=== PATIENT | male | born 1950 | race Caucasian/White ===

== ENCOUNTER 2017-01-09 07:08 | Inpatient (IN) ==
--- NOTE | 2017-01-04 21:49 | Discharge Summary ---
<Ann Anderson - Last Filed: 01/06/17 21:41> - Discharge Diagnosis (1) Arthritis of knee, right Priority: Primary Status: Acute (2) HLD (hyperlipidemia) Priority: Secondary Status: Chronic Qualifiers: Hyperlipidemia type: unspecified Qualified Code(s): E78.5 - Hyperlipidemia , unspecified (3) CAD (coronary artery disease) Priority: Secondary Status: Chronic Qualifiers: Coronary Disease-Associated Artery/Lesion type: unspecified vessel or lesion type [place] vs. transplanted heart: unspecified whether [place] or transplanted heart Associated angina: angina presence unspecified Qualified Code(s): I25.10 - Atherosclerotic heart disease of [place] coronary artery without angina pectoris (4) HTN (hypertension) Priority: Secondary Status: Chronic Qualifiers: Hypertension type: essential hypertension Qualified Code(s): I10 - Essential (primary) hypertension - Discharge Medications Home Medications: Lisinopril [Zestril] 5 mg PO DAILY #0 09/07/16 [History] Metoprolol [Lopressor] 25 mg PO BID #0 09/07/16 [History] Omeprazole [PriLOSEC] 40 mg PO QPM #0 09/07/16 [History] Pravastatin Sodium [Pravachol] 40 mg PO DAILY 11/27/16 [History] Aspirin Enteric Coated [Aspirin EC] 325 mg PO DAILY #21 tablet. 01/06/17 [Rx] OxyCODONE Immed Rel [Roxicodone 5 MG] 5 - 10 mg PO Q6HR PRN #40 01/06/17 [Rx] Aspirin Enteric Coated [Aspirin EC] 81 mg PO DAILY 01/09/17 [History] Duloxetine [Cymbalta] 30 mg PO BID 01/09/17 [History] Ergocalciferol (VITAMIN D2) [Vitamin D] 800 unit PO BID 01/09/17 [History] Allergies/Adverse Reactions: Allergies No Known Allergies Allergy (Verified 01/09/17 07:56) Primary care physician: Hudson Strong MD - Patient Status Disposition: Home, Self-Care Condition: Good - Discharge Instructions Follow Up With: Hudson Strong MD [Primary Care Provider] - 01/18/17 10:00 am Additional Instructions: Discharge Instructions: Total Knee Replacement Please call [facility] ([phone]), your Primary Care Physician, or report to the Emergency Room if you have any of the following symptoms: Nausea, vomiting, fever greater that 101.5, swelling, chest pain, shortness of breath, increased pain/redness/drainage/odor for your incision site, numbness/ tingling, or any other concerning symptoms. ACTIVITY:Weight-bearing as tolerated. You may progress off support (cruthches or walker) as tolerated. MEDICATIONS: Upon discharge resume your home medications. Take all the medications as prescribed. Take a stool softener if taking narcotic pain medications. Stool softeners are only effective if you drink enough fluids. Drink 6-8 glass of water or fluids a day, unless this is not allowed for another health problem. Despite using stool softeners, if you haven't had a bowel movement in 3 days, please switch to a gentle laxative. Gentle laxatives are sold over the counter. You should have a bowel movement within 24 hours, if not call the office. You will be discharged from the hospital with a prescription for pain medication. You are encouraged to decrease the use of narcotic pain medication as tolerated. Should you require a refill, please call the office. [facility] prescribes narcotic pain medication for only 4-6 weeks after surgery. If you require pain medication beyond this time periord, you may be referred to your Primary Care Physician or to the Pain Clinic for further evaluation. Plan ahead for refills on pain medication as many narcotics either need to be picked up at the office or mailed. It is best to call 48-72 hours in advance of needing a prescription refill so you don't run out of medication. To help control the post-operative pain, you may take NSAIDs (Aleve,Advil, Motrin, ibuprofen, naprosyn) or Tylenol as prescribed on the bottle in addition to the pain medication. ANTICOAGULATION (blood thinners): Continue your Aspirin, Lovenox or Coumadin as prescribed to help prevent a blood clot in the leg or in the lungs. As long as your incision remains dry and you tolerate the NSAIDs (Aleve, Advil, Motrin, ibuprofen, naprosyn), it is OK to use the NSAIDS while you are taking your anticoagulation medication. Should your incision start to drain, stop the NSAID and contact our office. Common symptoms of blood clot in the legs include: localized pain, swelling, calf tenderness, redness or discoloration of the skin. Blood clot in the lung symptoms include: shortness of breath, rapid pulse, sweating, and chest pain that worsens with deep breathing, coughing up blood, lightheadedness, feelings of anxiety. If you experience any of these symptoms notify your physician immediately, go to the emergency room, or if having trouble breathing, call 911. WOUND CARE: Leave the dressing on for 7 days. You may change the dressing if it becomes saturated greater than 50%. You can shower but not a tub bath or submerge your incision in water. Wash your hands with antibacterial soap, rinse and dry prior to any wound care. If you have ginger the visiting nurse or rehab facility can remove the stapes 10-14 days after surgery and place steri- strips across the wound. Leave the steri-strips in place until they fall off on their won. You may let water from the shower run on top of the steri-stirips. If you do not have a visiting nurse or rehab facility, you will need to return to the office at 10-14 days for the ginger to be removed. FOLLOW-UP: Please follow up with your surgeon in the orthopedic clinic in 4 weeks from the day of surgery. If you have ginger that need to be removed, you will need to come back to the office in 10-14 days from the day of surgery. - Hospital Course Hospital course: Mr. Diaz is a 66 year old male - Time Spent with Patient Total time spent providing and/or coordinating discharge services: <Tomer Azul - Last Filed: 01/11/17 06:23> Date of Encounter: 01/11/17 Time of Encounter: 06:23 - Discharge Diagnosis (1) Arthritis of knee, right Priority: Primary Status: Acute (2) HLD (hyperlipidemia) Priority: Secondary Status: Chronic Qualifiers: Hyperlipidemia type: unspecified Qualified Code(s): E78.5 - Hyperlipidemia , unspecified (3) HTN (hypertension) Status: Chronic Qualifiers: Hypertension type: essential hypertension Qualified Code(s): I10 - Essential (primary) hypertension (4) CAD (coronary artery disease) Priority: Secondary Status: Chronic Qualifiers: Coronary Disease-Associated Artery/Lesion type: unspecified vessel or lesion type [place] vs. transplanted heart: unspecified whether [place] or transplanted heart Associated angina: angina presence unspecified Qualified Code(s): I25.10 - Atherosclerotic heart disease of [place] coronary artery without angina pectoris Primary care physician: Hudson Strong MD - Patient Status Functional capacity at discharge: uses cane/walker Overall status at discharge: patient is progressing back to baseline - Hospital Course Hospital course: Mr. Diaz is a 66 year old male The patient had an uneventful postoperative course. They received antibiotics and physical therapy and were discharged in stable condition. There will follow -up in the office in 2 weeks. Aspirin DVT prophylaxis - Time Spent with Patient Total time spent providing and/or coordinating discharge services:
[2017-01-09] MEDS ORDERED: ceFAZolin 2,000 MG in D5% in Water (Mini-Bag+) 100 ML IVPB ONE (07:26)
[2017-01-09] MEDS ORDERED: Famotidine 20 MG/2 ML VIAL IVP ONE (07:28)
[2017-01-09] MEDS ORDERED: *HR* FentaNYL (PF) 100 MCG/2 ML VIAL ONE (07:41)
[2017-01-09] MEDS ORDERED: *HR* Midazolam HCl 2 MG/2 ML VIAL ONE (07:41)
[2017-01-09] MEDS ORDERED: *HR* Propofol 200 MG/20 ML VIAL IVP ONE (07:41)
--- NOTE | 2017-01-09 07:54 | History & Physical Report ---
Date of Encounter: 01/09/17 Time of Encounter: 07:54 24 Hour HP Update - Instructions Instructions: If the History and Physical is less than 30 days old and was completed prior to A.M. admission and or procedure and has NOT been updated on calendar day of procedure please complete this update prior to performing procedure. - Update Patient reports changes in Medical Condition: No Changes in assessment/condition: No Changes in Medication: No Preop tests/diagnostics Reviewed: Yes Surgery Remains Indicated: Yes Consent for Planned Operative Procedure(s) Verified: Yes - Pre-Operative Checklist Preoperative Checklist Indicated: No Prophylactic Antibiotic Ordered: Yes Is VTE Prophylaxis Indicated?: Yes
[2017-01-09] MEDS: Ringers Solution, Lactated 1,000 ML IVC SCH ×2 (07:59→10:30)
--- NOTE | 2017-01-09 08:45 | Anesthesia Evaluation PreOp ---
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 01/06/17 [Rx] OxyCODONE Immed Rel [Roxicodone 5 MG] 5 - 10 mg PO Q6HR PRN #40 01/06/17 [Rx] Aspirin Enteric Coated [Aspirin EC] 81 mg PO DAILY 01/09/17 [History] Duloxetine [Cymbalta] 30 mg PO BID 01/09/17 [History] Ergocalciferol (VITAMIN D2) [Vitamin D] 800 unit PO BID 01/09/17 [History] Allergies No Known Allergies Allergy (Verified 01/09/17 07:56) - Meds/Allergy Pre-op Review Medications Reviewed: Yes Allergies Reviewed: Yes Beta Blockers on Current Med List: No Anesthesia Results - Labs Laboratory Tests 12/25/16 12/25/16 11:17 11:17 Hgb 15.4 Hct 46.0 Plt Count 172 Sodium 141 Potassium 4.3 BUN 18 Creatinine 0.96 - Imaging EKG: report reviewed (SB Rt BBB) Additional studies: heart Cath from 2010 EF 50% Anesthesia Exam O2 Sat Height 1.8 m Height 1.8 m Height 1.8 m Weight 98.43 kg Weight 98.43 kg Weight 98.43 kg O2 Sat by Pulse Oximetry 97 Vital Signs Temp Pulse Resp BP Pulse Ox 98.5 F 58 18 139/87 97 01/09/17 07:44 01/09/17 07:44 01/09/17 07:44 01/09/17 07:44 01/09/17 07:44 Height: 5'11 Weight: 217 lbs NPO (# of Hours): MN Pain Scale: 0 - HEENT Pupil (Motor): Pupils equal, EOMI Mallampati: III Teeth: Normal Oral Opening: Less than or equal to 3 - 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
[2017-01-09] MEDS ORDERED: ROPIVACAINE HCL/PF 0.5% 30 ML VIAL ONE (08:49)
[2017-01-09] MEDS ORDERED: Tetracaine/PF 20 MG/2 ML AMPUL SPINA ONE (08:49)
--- NOTE | 2017-01-09 09:29 | Anesthesia Procedures ---
Date of Encounter: 01/09/17 Time of Encounter: 08:45 Procedures: Anesthesia - Nerve Block Procedure Date: 01/09/17 Time: 09:00 Pre-op Diagnosis: Left Osteoarthritis Surgical Procedure: Left TKA Checklist: Correct Patient Identifier Correct side: Left Blood Thinner: No Monitor Applied: EKG, BP, Pulse Oximetry Supplemental Oxygen via Nasal Cannula (L/min): 2 Sedation: Versed (mg): 2 Sedation: Fentanyl (mcg): 50 Indication: Post Op Analgesia Pre-op Neuro Deficits: No Block Type: Femoral Catheter placed: No Depth at skin (cm): 3 Sterile Technique: Yes Ultrasound used: Yes Anatomy identified: Yes Visual spread of Local: Yes Neuro Stimulation: Yes Nerve Stimulator Range: >0.4 - 0.6 mA Blood on Needle Aspiration: No Smooth Injection of Local: Yes Pain with Injection of Local: No Prep: Chlorhexadine Needle: 22 x 50 mm Stimuplex Local: Tetracaine (20), Ropivacaine (0.5%) Volume (cc): 30 Number of Attempts: 1 Complications: None/effective block Vitals: O2 Sat Height 1.8 m Height 1.8 m Height 1.8 m Weight 98.43 kg Weight 98.43 kg Weight 98.43 kg O2 Sat by Pulse Oximetry 98 O2 Sat by Pulse Oximetry 96 O2 Sat by Pulse Oximetry 97 Vital Signs Temp Pulse Resp BP Pulse Ox 98.5 F 58 18 139/87 97 01/09/17 07:44 01/09/17 07:44 01/09/17 07:44 01/09/17 07:44 01/09/17 07:44
[2017-01-09] MEDS ORDERED: *HR* Phenylephrine 10 MG/ML VIAL ONE (09:32)
--- NOTE | 2017-01-09 09:52 | Orthopedic Operative Note ---
Date of procedure: 01/09/17 Pre-op diagnosis: Left knee arthritis Post-op diagnosis: same Procedure: Procedure: Left Total knee replacement Estimated blood loss: 450 cc Hardware: Arthrex Femur: 7 Tibia: 7 PS insert: 16 Patella: 37 Exam Under anesthesia: Full flexion full extension no instability Procedural Notes: Grade 4 arthritic changes medial compartment grade 3 arthritic changes patellofemoral joint. Operative procedure: The patient was brought to the operating room and placed on the operating room table. After general anesthesia was administered the operative knee was examined. Findings were noted in the exam under anesthesia. The operative extremity was prepped and draped in sterile surgical fashion. The patient received IV antibiotics prior to skin incision. A standard midline incision was made centered over the patella. The incision was made through the skin and subcutaneous tissue. A medial parapatellar tendon approach was performed. Care was taken to preserve tissue along the medial aspect of the patella. And to protect the patella tendon. The deep MCL was released off the medial tibia. The infra patella fat pad was excised. Knee was brought into flexion. She noted to have grade 4 arthritic changes medial compartment grade 3 arthritic changes patellofemoral joint. The entry hole was made for the intramedullary femoral guide. The guide was seated in 6 degrees of valgus. Anterior cut was made followed by the distal cut. The ACL the PCL the medial and the lateral menisci were excised. The tibia was subluxed forward. The entry hole was made for the intramedullary tibial guide. Guide was seated to resect 2 mm off the more abnormal side. The knee was brought into flexion the distal femur was sized to a 7. The femoral guide was seated, the anterior cut was made followed by the posterior condylar cut, followed by the chamfer cuts. The finishing guide was seated the box cut was made and the lug holes were drilled. The tibia was sized to a 7, the tibial tray was seated and prepared with the large drill followed by the fin cutter. Trial reduction revealed full extension no varus valgus instability with the appropriate 16 PS Kathryn. The patella was everted and cut was made at the level of the insertion of the quadriceps and patella tendon. The patella was sized to a 37 the guide was seated and the lug holes are drilled. Trial reduction revealed excellent patella tracking. All trial components were removed all bony surfaces were irrigated. The tibia was cemented first followed by the femur. The 16 PS Kathryn was seated and the knee was brought into full extension. The patella was cemented and held in place with the patellar holding clamp. After the cement had hardened, the knee sat for 2 minutes with a Betadine saline solution. The knee was then irrigated out with 2 L of pulse irrigation. The extensor mechanism was closed with #2 FiberWire suture and #2 PDS suture. The subcutaneous tissue was then irrigated and closed deep with #1 PDS suture superficially with 0 PDS suture and skin was closed with skin ginger. The patient was then placed in a sterile dressing and a postoperative brace extubated and transferred to recovery room in stable condition. Anesthesia: ORIANA Surgeon: Tomer Azul Club Waiter/Waitress: Ann Anderson Condition: stable Disposition: PACU
[2017-01-09] MEDS ORDERED: Ondansetron 4 MG/2 ML VIAL ONE (10:05)
[2017-01-09] MEDS ORDERED: Dexamethasone 4 MG/ML VIAL ONE (10:05)
[2017-01-09] MEDS: *HR* HYDROmorphone (PF) 1 MG/ML SYRINGE IVP PRN ×3 (10:30→20:44)
[2017-01-09 10:39] LABS: Hematocrit 42.7 % (37.5-50.1)
--- NOTE | 2017-01-09 11:04 | Anesthesia Evaluation Post Op ---
Date of Encounter: 01/09/17 Time of Encounter: 11:00 - Vital Signs Vital Signs: Vital Signs/O2 Sat/Glucose, Most Current Temp Pulse Resp BP Pulse Ox 01/09/17 10:59 56 16 123/75 96 01/09/17 10:50 98.0 F 58 16 114/68 96 01/09/17 10:40 49 18 110/85 95 01/09/17 10:30 48 16 124/75 95 01/09/17 10:20 97.8 F 56 16 124/77 97 01/09/17 09:06 57 16 125/77 98 01/09/17 08:51 95 16 138/92 96 01/09/17 07:44 98.5 F 58 18 139/87 97 - Lungs Lungs: Clear Ascult./Percussion - Airway Airway: Non-obstructed - Cardiovascular Regular Rate - Mental Status Mental Status: Alert & Oriented, Answers Appropriately - Pain Pain Scale: 0 - Nausea Vomiting Nausea Vomiting: Not Present - Hydration Hydration: NPO - Discharge PostOp Status: Transfer Patient to floor
[2017-01-09] MEDS ORDERED: *HR* OxyCODONE Immed Rel 5 MG TABLET PO PRN (11:55)
[2017-01-09] MEDS ORDERED: Temazepam 15 MG CAPSULE PO PRN (11:55)
[2017-01-09] MEDS ORDERED: MOM Conc 10 ML UD.LIQ PO PRN (11:55)
[2017-01-09] MEDS ORDERED: Acetaminophen 325 MG TABLET PO PRN (11:55)
[2017-01-09] MEDS ORDERED: Naloxone 0.4 MG/ML INJ IVP PRN (11:55)
[2017-01-09] MEDS ORDERED: Sennosides 8.6 MG TABLET PO PRN (11:55)
[2017-01-09] MEDS ORDERED: Ondansetron 4 MG/2 ML VIAL IVP PRN (11:55)
[2017-01-09] MEDS: Aspirin Enteric Coated 81 MG Tablet PO SCH (13:15)
[2017-01-09] MEDS: Cholecalciferol (D-3) 1,000 UNIT TABLET PO SCH (13:22)
[2017-01-09] MEDS: *HR* OxyCODONE Immed Rel 5 MG TABLET PO PRN ×3 (13:29→23:54)
[2017-01-09] MEDS: ceFAZolin 2,000 MG in D5% in Water 100 ML IVPB SCH ×2 (15:40→23:54)
[2017-01-09] MEDS ORDERED: *HR* Enoxaparin 30 MG/0.3 ML SYRINGE SQ SCH (18:00)
[2017-01-09] MEDS: *HR* Enoxaparin 30 MG/0.3 ML SYRINGE SQ SCH (18:12)
[2017-01-09] MEDS ORDERED: Ringers Solution, Lactated 1,000 ML IVC SCH (21:00)
[2017-01-10] MEDS: *HR* HYDROmorphone (PF) 1 MG/ML SYRINGE IVP PRN ×5 (01:43→20:36)
[2017-01-10] MEDS: *HR* Enoxaparin 30 MG/0.3 ML SYRINGE SQ SCH ×2 (05:43→17:07)
[2017-01-10 06:18] LABS: Hematocrit 40.7 % (37.5-50.1); Hemoglobin 13.4 g/dL (12.9-16.9)
[2017-01-10 06:34] LABS: BUN/Creatinine Ratio 12 (6-26); Blood Urea Nitrogen 11 mg/dL (8-26); Calcium 8.3 mg/dL (8.6-10.8); Carbon Dioxide 25 mEq/L (19-29); Chloride 104 mEq/L (98-109); Glucose 127 mg/dL (70-99); Osmolality,Calculated 289 (280-300); Sodium 139 mEq/L (136-145); eGFR For African Americans > 60 (> 60); eGFR For Non-African Americans > 60 (> 60)
[2017-01-10 06:36] LABS: Potassium 4.1 mEq/L (3.5-4.5)
[2017-01-10] MEDS: Aspirin Enteric Coated 81 MG Tablet PO SCH (08:26)
[2017-01-10] MEDS: Cholecalciferol (D-3) 1,000 UNIT TABLET PO SCH (08:26)
[2017-01-10] MEDS: *HR* OxyCODONE Immed Rel 5 MG TABLET PO PRN ×3 (08:27→23:55)
--- NOTE | 2017-01-10 08:40 | Orthopedics Progress Note ---
Date of Encounter: 01/10/17 Time of Encounter: 08:39 - Assessment and Plan (1) Arthritis of knee, right Current Visit: Yes Status: Acute (2) HLD (hyperlipidemia) Current Visit: Yes Status: Chronic Qualifiers: Hyperlipidemia type: unspecified Qualified Code(s): E78.5 - Hyperlipidemia , unspecified (3) HTN (hypertension) Current Visit: Yes Status: Chronic Qualifiers: Hypertension type: essential hypertension Qualified Code(s): I10 - Essential (primary) hypertension (4) CAD (coronary artery disease) Current Visit: Yes Status: Chronic Qualifiers: Coronary Disease-Associated Artery/Lesion type: unspecified vessel or lesion type [place] vs. transplanted heart: unspecified whether [place] or transplanted heart Associated angina: angina presence unspecified Qualified Code(s): I25.10 - Atherosclerotic heart disease of [place] coronary artery without angina pectoris Subjective Interval history: Patient was seen this morning doing well without complaints. Afebrile vital signs stable. Operative extremity: Neurovascularly intact Dressing clean dry and intact Calves nontender Assessment and plan: Continue with postoperative care Hematocrit 40 Objective Vital signs: Vital Signs Temp Pulse Resp BP Pulse Ox 01/10/17 06:41 98.5 F 68 16 118/79 96 01/10/17 04:36 98.8 F 66 16 116/75 97 01/10/17 01:00 98.1 F 78 17 131/82 95 01/09/17 21:09 98.7 F 95 17 116/73 95 01/09/17 15:01 98.3 F 62 16 136/86 99 01/09/17 13:15 97.7 F 63 16 129/83 96 01/09/17 12:12 97.6 F 60 15 123/79 97 01/09/17 11:48 97.5 F L 60 15 132/75 99 01/09/17 11:17 97.5 F L 56 15 126/79 99 01/09/17 10:59 56 16 123/75 96 01/09/17 10:50 98.0 F 58 16 114/68 96 01/09/17 10:40 49 18 110/85 95 01/09/17 10:30 48 16 124/75 95 01/09/17 10:20 97.8 F 56 16 124/77 97 01/09/17 09:06 57 16 125/77 98 01/09/17 08:51 95 16 138/92 96 Intake and Output 01/09/17 01/10/17 01/10/17 23:59 07:59 15:59 Intake Total 100 / 100 100 / 100 Output Total 1000 / 1000 400 / 400 Balance -900 / -900 -300 / -300 Intake: IV Fluids 100 / 100 100 / 100 Ancef 2,000 MG In 100 / 100 100 / 100 Dextrose 5% 100 ML @ 200 mls/hr IVPB Q8HR [facility] Rx#: [id number] Oral 0 / 0 Output: Urine 1000 / 1000 400 / 400 - Labs CBC & BMP: 01/10/17 05:16 01/10/17 05:16 Labs: Abnormal lab results Glucose 127 mg/dL (70-99) H 01/10/17 05:16 Calcium 8.3 mg/dL (8.6-10.8) L 01/10/17 05:16 - VTE Documentation of Mechanical Device: Venous foot pump, device Consult Discharge Plan - Plan Referrals: Hudson Strong MD [Primary Care Provider] -
[2017-01-11] MEDS: *HR* HYDROmorphone (PF) 1 MG/ML SYRINGE IVP PRN (03:03)
[2017-01-11 04:57] LABS: Hematocrit 37.7 % (37.5-50.1); Hemoglobin 12.4 g/dL (12.9-16.9)
[2017-01-11 05:15] LABS: BUN/Creatinine Ratio 14 (6-26); Blood Urea Nitrogen 11 mg/dL (8-26); Calcium 8.7 mg/dL (8.6-10.8); Carbon Dioxide 25 mEq/L (19-29); Chloride 103 mEq/L (98-109); Glucose 141 mg/dL (70-99); Osmolality,Calculated 282 (280-300); Sodium 135 mEq/L (136-145); eGFR For African Americans > 60 (> 60); eGFR For Non-African Americans > 60 (> 60)
[2017-01-11] MEDS: *HR* Enoxaparin 30 MG/0.3 ML SYRINGE SQ SCH (05:54)
[2017-01-11] MEDS: *HR* OxyCODONE Immed Rel 5 MG TABLET PO PRN ×2 (05:54→12:23)
--- NOTE | 2017-01-11 06:24 | Orthopedics Progress Note ---
Date of Encounter: 01/11/17 Time of Encounter: 06:24 - Assessment and Plan (1) Arthritis of knee, right Current Visit: Yes Status: Acute (2) HLD (hyperlipidemia) Current Visit: Yes Status: Chronic Qualifiers: Hyperlipidemia type: unspecified Qualified Code(s): E78.5 - Hyperlipidemia , unspecified (3) HTN (hypertension) Current Visit: Yes Status: Chronic Qualifiers: Hypertension type: essential hypertension Qualified Code(s): I10 - Essential (primary) hypertension (4) CAD (coronary artery disease) Current Visit: Yes Status: Chronic Qualifiers: Coronary Disease-Associated Artery/Lesion type: unspecified vessel or lesion type [place] vs. transplanted heart: unspecified whether [place] or transplanted heart Associated angina: angina presence unspecified Qualified Code(s): I25.10 - Atherosclerotic heart disease of [place] coronary artery without angina pectoris Subjective Interval history: Patient was seen this morning doing well without complaints. Afebrile vital signs stable. Operative extremity: Neurovascularly intact Dressing clean dry and intact Calves nontender Assessment and plan: Continue with postoperative care Hematocrit 37 discharged today Objective Vital signs: Vital Signs Temp Pulse Resp BP Pulse Ox 01/11/17 01:36 98.6 F 84 16 132/71 92 L 01/10/17 20:12 99.5 F 84 16 153/88 92 L 01/10/17 14:28 98.5 F 76 18 123/74 94 L 01/10/17 11:17 98.3 F 71 16 120/67 92 L 01/10/17 06:41 98.5 F 68 16 118/79 96 Intake and Output 01/10/17 01/10/17 01/11/17 15:59 23:59 07:59 Intake Total 910 / 910 Output Total 600 / 600 500 / 500 Balance 310 / 310 -500 / -500 Intake: Oral 910 / 910 Output: Urine 600 / 600 500 / 500 Other: Meal Breakfast Percent of Meal Consumed 100% - Labs CBC & BMP: 01/11/17 04:33 01/11/17 04:33 Labs: Abnormal lab results Hgb 12.4 g/dL (12.9-16.9) L 01/11/17 04:33 Sodium 135 mEq/L (136-145) L 01/11/17 04:33 Glucose 141 mg/dL (70-99) H 01/11/17 04:33 - VTE Documentation of Mechanical Device: Venous foot pump, device Consult Discharge Plan - Plan Additional Instructions: Discharge Instructions: Total Knee Replacement Please call [facility] ([phone]), your Primary Care Physician, or report to the Emergency Room if you have any of the following symptoms: Nausea, vomiting, fever greater that 101.5, swelling, chest pain, shortness of breath, increased pain/redness/drainage/odor for your incision site, numbness/ tingling, or any other concerning symptoms. ACTIVITY:Weight-bearing as tolerated. You may progress off support (cruthches or walker) as tolerated. MEDICATIONS: Upon discharge resume your home medications. Take all the medications as prescribed. Take a stool softener if taking narcotic pain medications. Stool softeners are only effective if you drink enough fluids. Drink 6-8 glass of water or fluids a day, unless this is not allowed for another health problem. Despite using stool softeners, if you haven't had a bowel movement in 3 days, please switch to a gentle laxative. Gentle laxatives are sold over the counter. You should have a bowel movement within 24 hours, if not call the office. You will be discharged from the hospital with a prescription for pain medication. You are encouraged to decrease the use of narcotic pain medication as tolerated. Should you require a refill, please call the office. [facility] prescribes narcotic pain medication for only 4-6 weeks after surgery. If you require pain medication beyond this time periord, you may be referred to your Primary Care Physician or to the Pain Clinic for further evaluation. Plan ahead for refills on pain medication as many narcotics either need to be picked up at the office or mailed. It is best to call 48-72 hours in advance of needing a prescription refill so you don't run out of medication. To help control the post-operative pain, you may take NSAIDs (Aleve,Advil, Motrin, ibuprofen, naprosyn) or Tylenol as prescribed on the bottle in addition to the pain medication. ANTICOAGULATION (blood thinners): Continue your Aspirin, Lovenox or Coumadin as prescribed to help prevent a blood clot in the leg or in the lungs. As long as your incision remains dry and you tolerate the NSAIDs (Aleve, Advil, Motrin, ibuprofen, naprosyn), it is OK to use the NSAIDS while you are taking your anticoagulation medication. Should your incision start to drain, stop the NSAID and contact our office. Common symptoms of blood clot in the legs include: localized pain, swelling, calf tenderness, redness or discoloration of the skin. Blood clot in the lung symptoms include: shortness of breath, rapid pulse, sweating, and chest pain that worsens with deep breathing, coughing up blood, lightheadedness, feelings of anxiety. If you experience any of these symptoms notify your physician immediately, go to the emergency room, or if having trouble breathing, call 911. WOUND CARE: Leave the dressing on for 7 days. You may change the dressing if it becomes saturated greater than 50%. You can shower but not a tub bath or submerge your incision in water. Wash your hands with antibacterial soap, rinse and dry prior to any wound care. If you have ginger the visiting nurse or rehab facility can remove the stapes 10-14 days after surgery and place steri- strips across the wound. Leave the steri-strips in place until they fall off on their won. You may let water from the shower run on top of the steri-stirips. If you do not have a visiting nurse or rehab facility, you will need to return to the office at 10-14 days for the ginger to be removed. FOLLOW-UP: Please follow up with your surgeon in the orthopedic clinic in 4 weeks from the day of surgery. If you have ginger that need to be removed, you will need to come back to the office in 10-14 days from the day of surgery. Referrals: Hudson Strong MD [Primary Care Provider] - 01/18/17 10:00 am
--- NOTE | 2017-01-11 06:58 | Venous Imaging Report ---
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 Normal contralateral common femoral vein. Recommendations: After imaging the patient returned to their room. Findings Venous Duplex Results: Right: Venous imaging of the lower extremity reveals full patency and normal vessel compressibility of the right common femoral. Doppler signals in the evaluated veins were normal. Left: Venous imaging of the lower extremity reveals full patency and normal vessel compressibility of the left distal iliac, left common femoral, left superficial femoral, left popliteal, left posterior tibial, left peroneal, left great saphenous and left lesser saphenous. Doppler signals in the evaluated veins were normal. Prior Study: No prior study available for comparison. Lower Extremity Venous Duplex Side Vein Compress Spontaneous Flow Augment Diameter (cm) Depth (cm) Left Distal Iliac Normal Yes Phasic Yes Left Common Femoral Normal Yes Phasic Yes Left Superficial Femoral Normal Yes Phasic Yes Left Popliteal Normal Yes Phasic Yes Left Posterior Tibial Normal Yes Phasic Yes Left Peroneal Normal Yes Phasic Yes Left Great Saphenous Normal Yes Phasic Yes Left Lesser Saphenous Normal Yes Phasic Yes Right Common Femoral Normal Yes Phasic Yes Updated by Vinod Rice MD on 01/11/2017 6:51:53 AM electronically signed on 01/11/2017 6:52:13 AM with status of Final
[2017-01-11] MEDS: Aspirin Enteric Coated 81 MG Tablet PO SCH (07:59)
[2017-01-11] MEDS: Cholecalciferol (D-3) 1,000 UNIT TABLET PO SCH (08:00)
[2017-01-11 10:55] VITALS: BP 128/75
== END 2017-01-11 12:45 | disposition home or self-care (01) | DRG 470 ==
LOC: SAMDAY 07:08 → 3NENU 11:14
PROVIDERS: ADMIT Orthopaedic Surgery; ATTEND Orthopaedic Surgery

== ENCOUNTER 2019-02-23 06:07 | Inpatient (IN) ==
[2019-02-23] MEDS ORDERED: CeFAZolin Syr 2,000MG/20 ML 2,000 MG/20 ML SYRINGE IVPB ONE (06:28)
[2019-02-23] MEDS ORDERED: Ringers Solution, Lactated 1,000 ML IVC SCH (06:30)
--- NOTE | 2019-02-23 07:07 | Anesthesia Evaluation PreOp ---
Date of Encounter: 02/23/19 Time of Encounter: 07:05 - Past History Planned Operation: PLIF L3-5 Cardiac History: HTN, Hyperlipidemia, Cardiac Surgery (minimally invasive cardiac surgery 2011 to remove clot in heart and close hole (?ASD, PFO)), Other (hx DVT s/p knee surgery) Pulmonary History: LESTER Dx (does not wear CPAP) EVENTS ADMINISTRATIVE ASSISTANT History: Other (spondylolisthesis) Other Medical History: GERD Anesthesia History: No Prior Anesthetic Complications, Past Anesthesia (hernia repair, OPEN Heart surgery (hole in heart), bowel surgery, colonoscopy, left TKR, left knee scope) Alcohol Use: none Drug use: none Medications and Allergies Metoprolol [Lopressor] 25 mg PO BID #0 09/07/16 [History] Omeprazole [PriLOSEC] 40 mg PO QPM #0 09/07/16 [History] Pravastatin Sodium [Pravachol] 40 mg PO QPM 11/27/16 [History] Aspirin Enteric Coated [Aspirin EC] 81 mg PO DAILY 01/09/17 [History] Lisinopril [Zestril] 10 mg PO QAM 02/23/19 [History] [place]-3/Dha/Epa/Fish Oil [Fish Oil 1,000 mg Softgel] 1,000 mg PO QAM 02/23/19 [History] Allergy/AdvReac Type Severity Reaction Status Date / Time No Known Allergies Allergy Verified 02/23/19 06:49 - Meds/Allergy Pre-op Review Medications Reviewed: Yes Allergies Reviewed: Yes Beta Blockers on Current Med List: Yes (metoprolol) If Beta Blockers taken, Date/Time (Last Dose taken): 02-22-19 metoprolol 21:00 Anesthesia Results - Labs Laboratory Tests 02/16/19 02/16/19 02/16/19 12:00 12:00 12:00 WBC 6.4 Hgb 15.4 Hct 48.0 Plt Count 186 PT 10.4 INR 0.9 APTT 31.4 Sodium 141 Potassium 4.6 Chloride 106 Carbon Dioxide 27 BUN 14 Creatinine 0.85 Est GFR ( Amer) > 60 Est GFR (Non-Af Amer) > 60 - Imaging EKG: report reviewed, image reviewed (SINUS BRADYCARDIA RIGHT BUNDLE BRANCH BLOCK INFERIOR MYOCARDIAL INFARCTION, OF INDETERMINATE AGE ANTEROSEPTAL MYOCARDIAL INFARCTION, OF INDETERMINATE AGE) Anesthesia Exam Last Vital Signs Temp 98.0 F 02/23/19 06:52 Pulse 74 02/23/19 06:52 Resp 18 02/23/19 06:52 BP 180/99 02/23/19 06:52 Pulse Ox 98 02/23/19 06:52 Weight: 112 kg NPO (# of Hours): > 8 hrs - HEENT Pupil (Motor): Pupils equal, EOMI Mallampati: II Teeth: Normal Oral Opening: Greater than 3 - EVENTS ADMINISTRATIVE ASSISTANT LOC: Oriented - Cardiac Rhythm: Regular Murmur: None - Pulmonary Breath Sounds: bilateral Clear Respiratory Effort: Symmetrical Anesthesia Assess/Plan ASA Score: 3 Level of consciousness: Cooperative Anesthetic Plan: General Monitoring Plan: Standard Monitors Recovery Plan: PACU
[2019-02-23] MEDS ORDERED: LIDOCAINE 1% PF 2 ML AMPUL ONE (07:09)
[2019-02-23] MEDS ORDERED: *HR* OxyCODONE Immed Rel 5 MG TABLET PO ONE (07:18)
[2019-02-23] MEDS ORDERED: Acetaminophen IV 1,000 MG/100 ML INFUS..BTL IVPB ONE ×2 (07:19→15:54)
--- NOTE | 2019-02-23 07:21 | History & Physical Report ---
Date of Encounter: 02/23/19 Time of Encounter: 07:18 24 Hour HP Update - Instructions Instructions: If the History and Physical is less than 30 days old and was completed prior to A.M. admission and or procedure and has NOT been updated on calendar day of procedure please complete this update prior to performing procedure. - Update Patient reports changes in Medical Condition: No Changes in examination, assessment, or condition: No Changes in Medication: No Preop tests/diagnostics Reviewed: Yes Pre-Op MRSA Screen: Negative Surgery Remains Indicated: Yes Consent for Planned Operative Procedure(s) Verified: Yes - Pre-Operative Checklist Preoperative Checklist Indicated: No Prophylactic Antibiotic Ordered: Yes Home Medications Include Beta Terrence: Yes Beta Terrence Taken Today (Day of Surgery): No Beta Terrence Taken Yesterday (Day Prior to Surgery): Yes Is VTE Prophylaxis Indicated?: Yes
[2019-02-23] MEDS ORDERED: *HR* Promethazine 25 MG/ML VIAL IVP PRN (07:43)
[2019-02-23] MEDS ORDERED: *HR* OxyCODONE Immed Rel 5 MG TABLET PO PRN (07:43)
[2019-02-23] MEDS ORDERED: Albuterol 2.5 MG/3 ML NEBULIZER IH ONE (07:43)
[2019-02-23] MEDS ORDERED: *HR* FentaNYL (PF) 100 MCG/2 ML VIAL IVP PRN (07:43)
[2019-02-23] MEDS ORDERED: *HR* Propofol 200 MG/20 ML VIAL IVP ONE (07:44)
[2019-02-23] MEDS ORDERED: *HR* Remifentanil 1 MG VIAL IVP ONE ×3 (07:45→11:02)
[2019-02-23] MEDS ORDERED: *HR* Succinylcholine 200 MG/10 ML VIAL IVP ONE (07:47)
[2019-02-23] MEDS ORDERED: *HR* Rocuronium Bromide 50 MG/5 ML VIAL ONE (07:47)
[2019-02-23] MEDS ORDERED: Lidocaine -MPF 2% 2 ML VIAL ONE (07:47)
[2019-02-23] MEDS ORDERED: *HR* PHENYLEPHRINE 1,000 MCG/10 ML SYRINGE IVP ONE ×2 (07:50→08:22)
[2019-02-23] MEDS ORDERED: EPHEDrine 50 MG/ML VIAL ONE (08:22)
[2019-02-23] MEDS ORDERED: *HR* Phenylephrine 10 MG/ML VIAL ONE (09:06)
[2019-02-23] MEDS ORDERED: Bacitracin 50,000 UNIT, Polymyxin B Sulfate 500,000 UNIT, Sodium Chloride IRRigation 1,... IR ONE (09:40)
[2019-02-23] MEDS ORDERED: *HR* Labetalol 20 MG/4 ML SYRINGE IVP ONE (11:55)
--- NOTE | 2019-02-23 11:59 | Orthopedic Operative Note ---
Date of procedure: 02/23/19 Pre-op diagnosis: Spondylolisthesis, lumbar stenosis, lumbar radiculopathy Post-op diagnosis: same Operation/Findings: Posterior lumbar interbody fusion L3-L5: The patient successfully underwent general endotracheal anesthesia. The patient was given antibiotics prior to the start of the procedure. Compression boots and stockings were used for deep vein thrombosis prophylaxis. A Meza catheter was placed. Leads for neuro monitoring were placed on the upper and lower extremities. This included the cranium. The neuro monitoring personnel confirmed there were satisfactory readings prior to the start of the procedure. The patient was turned prone on the Shahid table. The back was prepped and draped in the usual sterile fashion. An incision was was marked and centered over the involved L3-L5 levels in the mid line. The incision was deepened through the lumbar fascia. Bovie cautery and Contreras elevators were used to reflect the paraspinal musculature at the lateral extent of the transverse processes of the involved L3-L5 levels. Ayesha clamps were placed over the spinous L4 and L5 processes. An intraoperative lateral fluoroscopy graft was obtained. A conversation was held between the surgeon and radiologist and both confirmed we had the correct operative levels. We then placed pedicle screws in standard fashion with the aid of fluoroscopy and anatomic landmarks. Briefly a starter awl was used. A gearshift was subsequently used to enter the forestry pilot hole via a transpedicular route into the vertebral body. The forestry pilot hole was tapped with an undersized instrument, and subsequently three 6.5 x 40 mm pedicle screws were placed on the right side ndicated levels. We omitted screws on the left side because we had concerns regarding cortical breach and placement. The screws were tested with the aid of the neurologic monitoring staff via pedicle screw stimulation. All reading suggested there was no significant cortical wall breech. The screws were also evaluated fluoro- graphically and appeared to be in satisfactory position. We then turned our attention to the decompression portion of the procedure. We removed the supraspinous and interspinous ligaments and subsequently the insertion of the ligamentum flavum on the undersurface of the proximal L4 lamina was dislodged with a curette. We then removed the ligamentum flavum as well as undercut the L4-5 facets at this L4-5 level to decompress the lateral recesses. We also performed a L4 laminectomy. After the decompression , which was over and above that which was required to place the interbody graft, the foramen and traversing roots at this level were found to be free and patent. We also took part of the medial facets in order to aid in the decompression. We moved proximally to the L3-4 level and again removed the supraspinous and interspinous ligament, hypertrophied ligamentum flavum, removed part of the spinous processes, undercut the L3-4 facets, and did partial medial facetectomies. We also did an L3 laminectomy. After this decompression, the exiting and traversing nerve roots at this level were free and patent. the We then protected the neural elements including the thecal sac and traversing nerve root on the right at L4-5 with a dural retractor. We made an annulotomy into the L4-5 disc space and then removed entire disc material using Pituitary instruments. We trialed various size grafts after the endplates were prepared for graft insertion. A 10 x 26 enter body graft fit well within the L4-L5 disc space. We moved proximally to the L3-4 level and again protected the neural elements with a dural retractor, made an annulotomy into the L3-4 disc space, removed entire disc material, and trialed a 10 x 26 enter body graft which fit well within the L3-4 disc space. We obtained some bone from the right posterior superior iliac spine through us a separate incision and combined with this with the bone which we had saved from the laminectomy portion of the procedure performed at L3 and L4. This autograft bone was first placed in the anterior portion of the L3-4 and L4-5 disc spaces and additional bone was placed within the interbody graft spacers. We then placed 2 separate the interbody grafts spacer obliquely across the L4-5 and L3-4 disc spaces respectively. They were placed towards the midline while protecting the neural elements with a root retractor. When the grafts at L3-4 and L4-5 was found to be in satisfactory position the electric range servicer was removed. We then copiously irrigated the wound. We then decorticated the L3, L4, and L5 transverse processes as well as the facet joints of the involved L3-4 and L4-5 levels to aid in the posterolateral fusion. We placed autograft bone in the lateral gutters over these regions. We then placed rods within the screw heads of the involved L3-L5 levels and first locked the distal screws and then subsequently locked the proximal screws so as to improve and reduce the spondylolisthesis previously seen. We then closed the wound in layers with 1 Vicryl for the fascia, 2-0 Vicryl. Subcutaneous tissue, and Dermabond was used for skin closure. Sterile dressings were placed over the wound. The patient was turned supine on a hospital bed and extubated. All sponge instruments and needle counts were correct at the end of the procedure. The patient tolerated the procedure well without complications. Anesthesia: GETA Surgeon: Vinod Ramirez Jr Was there an assistant family teacher present: No Estimated blood loss (cc): 200 Specimen: None Condition: stable Disposition: PACU
[2019-02-23] MEDS ORDERED: *HR* HYDROMORPHONE 2 MG/ML VIAL ONE (12:00)
--- NOTE | 2019-02-23 13:12 | Anesthesia Evaluation Post Op ---
Date of Encounter: 02/23/19 Time of Encounter: 12:40 - Discharge PostOp Status: Transfer Patient to floor (Patient's vital signs have been reviewed. Patient is stable postoperatively and has adequately recovered from anesthesia. Patient is determined to have stable airway patency and respiratory function including respiratory rate and oxygen saturation. Patient has a stable heart rate, blood pressure and adequate hydration. Patients mental status is acceptable. Patients temperature is appropriate. Pain and nausea are adequately controlled.)
[2019-02-23] MEDS ORDERED: Ondansetron 4 MG/2 ML VIAL IVP PRN (13:23)
[2019-02-23] MEDS ORDERED: Naloxone 0.4 MG/ML INJ IVP PRN (13:23)
[2019-02-23] MEDS: *HR* HYDROcodone/Acet 5/325 mg TABLET PO PRN ×2 (14:35→21:39)
[2019-02-23] MEDS: Ringers Solution, Lactated 1,000 ML IVC SCH (14:39)
[2019-02-23] MEDS: *HR* OxyCODONE Immed Rel 5 MG TABLET PO PRN (18:58)
[2019-02-24] MEDS: *HR* OxyCODONE Immed Rel 5 MG TABLET PO PRN ×4 (00:22→21:58)
[2019-02-24] MEDS: *HR* HYDROcodone/Acet 5/325 mg TABLET PO PRN ×2 (04:07→12:15)
[2019-02-24] MEDS: (Omega-3/Dha/Epa/Fish Oil [Fish Oil 1,000 Mg Softgel]) PO SCH (07:55)
[2019-02-24] MEDS: Aspirin Enteric Coated 81 MG Tablet PO SCH (07:56)
--- NOTE | 2019-02-24 09:18 | Orthopedics Progress Note ---
Date of Encounter: 02/24/19 Time of Encounter: 10:30 Subjective Principal diagnosis: s/p PLIF Interval history: Date of procedure: 02/23/19 Pre-op diagnosis: Spondylolisthesis, lumbar stenosis, lumbar radiculopathy Post-op diagnosis: same Operation/Findings: Posterior lumbar interbody fusion L3-L5 Patient c/o significant low back pain. States that he is having difficulty getting comfortable. States that he did not anticipate this much pain. Afebrile vital signs are stable. Dressing is clean dry and intact. Neurovascularly intact with regard to bilateral lower extremities. Fires all upper and lower extremity motor groups. Assessment :stable, postoperative pain Plan mobilize - therapy presently recommending ECF - continue to participate with therapy Continue analgesics Discharge planning - awaiting placement/reeval Dr. Ramirez aware of patient status Objective Vital signs: Vital Signs Temp Pulse Resp BP Pulse Ox 02/24/19 03:29 98.9 F 84 14 113/74 95 02/23/19 23:42 98.6 F 84 17 107/68 94 02/23/19 19:42 98.3 F 95 16 106/64 95 02/23/19 17:25 98.1 F 78 18 101/63 93 02/23/19 16:10 98.7 F 71 16 111/65 95 02/23/19 15:14 98.5 F 75 19 124/72 93 02/23/19 14:00 98.5 F 72 17 111/69 94 02/23/19 13:50 97.7 F 70 14 96/65 93 02/23/19 13:05 97.4 F L 71 18 106/64 93 02/23/19 12:52 98.3 F 82 18 98/61 94 02/23/19 12:42 98.3 F 73 18 97/62 94 02/23/19 12:32 76 18 107/78 95 02/23/19 12:22 76 18 98/63 96 02/23/19 12:12 99.4 F 81 18 109/70 96 Intake and Output 02/23/19 02/24/19 02/24/19 23:59 07:59 15:59 Intake Total 200 / 220 1420 / 1420 Output Total 450 / 1175 400 / 425 25 / 425 Balance -250 / -955 1020 / 995 -25 / 995 Intake: IV Fluids 100 / 120 Ancef 2,000 MG In 0.9 % Sodium 100 / 100 Chloride 100 ML @ 200 mls/hr IVPB Q8HR COUNTS INCLUDE 234 BEDS AT THE [facility] Rx#:[id number] Oral 100 / 100 Other 1420 / 1420 Output: Urine 25 / 25 Catheter 450 / 675 400 / 400 - Labs CBC & BMP: 02/25/19 11:34 02/25/19 11:34 Consult Discharge Plan - Plan Referrals: Hudson Strong MD [Primary Care Provider] -
[2019-02-24] MEDS: Ringers Solution, Lactated 1,000 ML IVC SCH ×2 (14:15→14:16)
[2019-02-24] MEDS ORDERED: MOM Conc 10 ML UD.LIQ PO PRN (16:17)
[2019-02-25] MEDS: *HR* OxyCODONE Immed Rel 5 MG TABLET PO PRN (05:00)
[2019-02-25] MEDS: Aspirin Enteric Coated 81 MG Tablet PO SCH (09:06)
[2019-02-25] MEDS: (Omega-3/Dha/Epa/Fish Oil [Fish Oil 1,000 Mg Softgel]) PO SCH (09:06)
[2019-02-25] MEDS: *HR* HYDROcodone/Acet 5/325 mg TABLET PO PRN (09:09)
[2019-02-25] MEDS ORDERED: Acetaminophen IV 1,000 MG/100 ML INFUS..BTL ONE (10:11)
--- NOTE | 2019-02-25 11:22 | Orthopedics Progress Note ---
Date of Encounter: 02/25/19 Time of Encounter: 11:40 - Assessment and Plan (1) Lumbar radiculopathy Current Visit: Yes Status: Chronic (2) Lumbar stenosis Current Visit: Yes Status: Chronic Qualifiers: Neurogenic claudication status: unspecified Qualified Code(s): M48.061 - Spinal stenosis, lumbar region without neurogenic claudication (3) Spondylolisthesis Current Visit: Yes Status: Chronic Qualifiers: Spinal region: unspecified Qualified Code(s): M43.10 - Spondylolisthesis, site unspecified (4) Status post lumbar spinal fusion Current Visit: Yes Status: Acute Subjective Principal diagnosis: s/p PLIF Interval history: Date of procedure: 02/23/19 Pre-op diagnosis: Spondylolisthesis, lumbar stenosis, lumbar radiculopathy Post-op diagnosis: same Operation/Findings: Posterior lumbar interbody fusion L3-L5 Patient c/o significant abd pain and swelling overnight. KUB earlier this morning demonstrated ileus vs SBO. Patient since imaging states he has passed gas and has had a small bowel movement. Patient states that he feels mild relief since passage of these. States his back pain is slightly improved today. States he has ambulated twice today. Vitals reviewed. Neurovascularly intact with regard to bilateral lower extremities. Fires all upper and lower extremity motor groups. Assessment : abdominal distension with pain postoperative pain Dr. Ramirez made aware of patient's status. Plan mobilize frequently NPO Continue analgesics though sparingly to reduce risk of further bowel distress Discharge planning - therapy recommending HH - will reevaluate discharge on POD#3 Will reevaluate later in the day re: abd distension whether GI consult vs NG tube placement required as patient states he would like to see if improves with time. Agreeable to this plan. Objective Vital signs: Vital Signs Temp Pulse Resp BP Pulse Ox 02/25/19 06:42 98.4 F 87 16 134/81 93 02/25/19 04:56 98.7 F 92 15 139/76 90 02/24/19 23:03 98.8 F 91 15 148/80 93 02/24/19 20:13 98.4 F 93 15 124/77 90 02/24/19 12:10 99.5 F 87 18 121/68 94 Intake and Output 05/07/19 05/08/19 05/08/19 23:59 07:59 15:59 Intake Total 400 / 3070 Output Total 1125 / 1925 450 / 450 Balance -725 / 1145 -450 / -450 Intake: Oral 400 / 550 Output: Urine 1125 / 1525 450 / 450 Other: Stool Size Small Stool Consistency loose liquid Stool Color Brown Weight 111.6 kg Patient Weight 02/25/19 23:59 Weight 111.6 kg - Labs CBC & BMP: 02/25/19 11:34 02/25/19 11:34 Consult Discharge Plan - Plan Referrals: Hudson Strong MD [Primary Care Provider] -
[2019-02-25 12:04] LABS: Basophils % 0.1 %; Hematocrit 35.9 % (37.5-50.1); Hemoglobin 11.5 g/dL (12.9-16.9); Immature Granulocytes % 0.6 % (0-4); Lymphocytes # 0.8 K/mcL (0.6-4.6); Lymphocytes % 5.8 %; Mean Corpuscular Volume 93.7 fL (83.0-100.0); Mean Platelet Volume 9.7 fL (9.4-12.4); Monocytes # 2.5 K/mcL (0.0-1.3); Neutrophils # 10.5 K/mcL (1.6-8.9); Platelet Count 159 K/mcL (140-400); Red Blood Count 3.83 M/mcL (4.19-5.50); Red Cell Distribution Width 13.1 % (11.5-14.5); Segmented Neutrophils % 75.5 %
[2019-02-25 12:07] LABS: Alanine Aminotransferase 19 Units/L (7-52); Albumin 3.6 g/dL (3.5-5.7); Albumin/Globulin Ratio 1.4 (1.1-2.2); Alkaline Phosphatase 58 Units/L (34-104); Aspartate Amino Transferase 40 Units/L (13-39); BUN/Creatinine Ratio 13 (6-26); Bilirubin,Total 1.7 mg/dL (0.3-1.0); Blood Urea Nitrogen 11 mg/dL (8-23); Calcium 9.3 mg/dL (8.6-10.3); Carbon Dioxide 31 mEq/L (23-29); Chloride 101 mEq/L (98-107); Globulin 2.6 g/dL (2.4-3.5); Glucose 177 mg/dL (70-105); Osmolality,Calculated 284 (280-300); Sodium 135 mEq/L (136-145); Total Protein 6.2 g/dL (6.4-8.9); eGFR For Non-African Americans > 60 (> 60)
[2019-02-25] MEDS: Ringers Solution, Lactated 1,000 ML IVC SCH (20:13)
[2019-02-25] MEDS: Acetaminophen 325 MG TABLET PO PRN (23:30)
[2019-02-26] MEDS: Ringers Solution, Lactated 1,000 ML IVC SCH (06:07)
[2019-02-26] MEDS: Aspirin Enteric Coated 81 MG Tablet PO SCH (08:48)
[2019-02-26] MEDS: (Omega-3/Dha/Epa/Fish Oil [Fish Oil 1,000 Mg Softgel]) PO SCH (08:48)
[2019-02-26] MEDS: Acetaminophen 325 MG TABLET PO PRN (08:50)
[2019-02-26 09:10] LABS: Basophils % 0.1 %; Eosinophils % 0.1 %; Hematocrit 35.5 % (37.5-50.1); Hemoglobin 11.5 g/dL (12.9-16.9); Immature Granulocytes % 0.6 % (0-4); Lymphocytes # 0.7 K/mcL (0.6-4.6); Lymphocytes % 6.8 %; Mean Corpuscular HGB Conc 32.4 g/dL (31.6-35.5); Mean Corpuscular Volume 92.7 fL (83.0-100.0); Mean Platelet Volume 9.8 fL (9.4-12.4); Monocytes # 1.3 K/mcL (0.0-1.3); Monocytes % 12.9 %; Neutrophils # 7.7 K/mcL (1.6-8.9); Platelet Count 165 K/mcL (140-400); Red Blood Count 3.83 M/mcL (4.19-5.50); Red Cell Distribution Width 12.7 % (11.5-14.5); Segmented Neutrophils % 79.5 %
[2019-02-26 09:25] LABS: Calcium 9.1 mg/dL (8.6-10.3); Carbon Dioxide 28 mEq/L (23-29); Chloride 101 mEq/L (98-107); Glucose 161 mg/dL (70-105); Potassium 3.4 mEq/L (3.5-5.1); Sodium 139 mEq/L (136-145)
[2019-02-26 10:01] LABS: BUN/Creatinine Ratio 15 (6-26); Blood Urea Nitrogen 11 mg/dL (8-23); Osmolality,Calculated 291 (280-300); eGFR For Non-African Americans > 60 (> 60)
--- NOTE | 2019-02-26 16:42 | Orthopedics Progress Note ---
Date of Encounter: 02/26/19 Time of Encounter: 08:35 - Assessment and Plan (1) Lumbar radiculopathy Current Visit: Yes Status: Chronic (2) Lumbar stenosis Current Visit: Yes Status: Chronic Qualifiers: Neurogenic claudication status: unspecified Qualified Code(s): M48.061 - Spinal stenosis, lumbar region without neurogenic claudication (3) Spondylolisthesis Current Visit: Yes Status: Chronic Qualifiers: Spinal region: unspecified Qualified Code(s): M43.10 - Spondylolisthesis, site unspecified (4) Status post lumbar spinal fusion Current Visit: Yes Status: Acute (5) Abdominal distension Current Visit: Yes Status: Acute Subjective Principal diagnosis: s/p PLIF Interval history: Date of procedure: 02/23/19 Pre-op diagnosis: Spondylolisthesis, lumbar stenosis, lumbar radiculopathy Post-op diagnosis: same Operation/Findings: Posterior lumbar interbody fusion L3-L5 POD#3 Patient c/o significant abd pain and swelling on POD#2 where KUB demonstrated ileus vs SBO. Patient since imaging states he has passed gas and has had a small bowel movement. Patient states through the night he has had significant passage of flatus and significant improvement in abd pain. States his back pain is improved today. States he has ambulated with therapy this morning. Vitals reviewed. Neurovascularly intact with regard to bilateral lower extremities. Fires all upper and lower extremity motor groups. Assessment : abdominal distension with pain postoperative pain Dr. Ramirez made aware of patient's status. Plan mobilize frequently NPO to continue until reevaluation at midday. Continue analgesics though sparingly to reduce risk of further bowel distress Discharge planning - therapy recommending HH vs SWB - will reevaluate Films reviewed Will reevaluate later in the day re: abd distension whether to progress with diet. Agreeable to this plan. Discharge on hold until resolution of bowel distress Objective Vital signs: Vital Signs Temp Pulse Resp BP Pulse Ox 02/26/19 15:06 97.5 F L 80 18 152/78 95 02/26/19 10:00 98.5 F 96 16 143/76 95 02/26/19 06:36 98.9 F 94 16 138/73 95 02/26/19 04:21 99.2 F 90 16 141/77 94 02/26/19 00:03 159/84 02/25/19 22:26 98.5 F 92 15 171/90 94 02/25/19 19:21 98.8 F 103 15 145/75 93 Intake and Output 02/26/19 02/26/19 02/26/19 07:59 15:59 23:59 Intake Total 0 / 0 Output Total 1000 / 1000 Balance -1000 / -1000 Intake: IV Fluids 0 / 0 Lactated Ringers 1,000 ML @ 100 0 / 0 mls/hr IVC .Q10H RAJANI Rx#: [id number] Output: Urine 1000 / 1000 Other: Weight 111.7 kg Patient Weight 02/26/19 23:59 Weight 111.7 kg - Labs CBC & BMP: 02/26/19 08:49 02/26/19 08:49 Labs: Abnormal lab results WBC 13.9 K/mcL (4.3-11.1) H 02/25/19 11:34 RBC 3.83 M/mcL (4.19-5.50) L 02/26/19 08:49 Hgb 11.5 g/dL (12.9-16.9) L 02/26/19 08:49 Hct 35.5 % (37.5-50.1) L 02/26/19 08:49 10.5 K/mcL (1.6-8.9) H 02/25/19 11:34 2.5 K/mcL (0.0-1.3) H 02/25/19 11:34 Sodium 135 mEq/L (136-145) L 02/25/19 11:34 Potassium 3.4 mEq/L (3.5-5.1) L 02/26/19 08:49 Carbon Dioxide 31 mEq/L (23-29) H 02/25/19 11:34 Glucose 161 mg/dL (70-105) H 02/26/19 08:49 1.7 mg/dL (0.3-1.0) H 02/25/19 11:34 AST 40 Units/L (13-39) H 02/25/19 11:34 6.2 g/dL (6.4-8.9) L 02/25/19 11:34 Consult Discharge Plan - Plan Referrals: Hudson Strong MD [Primary Care Provider] -
--- NOTE | 2019-02-26 16:45 | Event Note ---
Date of Encounter: 02/26/19 Time of Encounter: 12:00 Patient seen at bedside. Spouse at bedside. Patient abd soft and nontender. Patient noted to pass flatus. Patient states he feels hungry Vitals have remained stable Discussed patient's status with Dr. Ramirez Progress to full diet as tolerated If continues to tolerate with continued improvement in bowel performance, will plan to discharge tomorrow on POD#4 Patient and spouse verbalize agreement to this plan.
[2019-02-27] MEDS: Acetaminophen 325 MG TABLET PO PRN ×2 (03:55→12:48)
[2019-02-27] MEDS: Ringers Solution, Lactated 1,000 ML IVC SCH (06:10)
--- NOTE | 2019-02-27 08:27 | Discharge Summary ---
Orders not resulted at time of discharge: Pending orders 02/23/19 XR fluoroscopy <1 hr [XR] Routine Date of Encounter: 02/27/19 Time of Encounter: 08:24 - Discharge Diagnosis (1) Lumbar radiculopathy Priority: Primary Status: Chronic (2) Lumbar stenosis Priority: Primary Status: Chronic Qualifiers: Neurogenic claudication status: unspecified Qualified Code(s): M48.061 - Spinal stenosis, lumbar region without neurogenic claudication (3) Spondylolisthesis Priority: Primary Status: Chronic Qualifiers: Spinal region: unspecified Qualified Code(s): M43.10 - Spondylolisthesis, site unspecified (4) Status post lumbar spinal fusion Priority: Primary Status: Acute (5) Abdominal distension Priority: Secondary Status: Resolved - Hospital Course Hospital course: Mr. Diaz is a 69 year old male Date of procedure: 02/23/19 Pre-op diagnosis: Spondylolisthesis, lumbar stenosis, lumbar radiculopathy Post-op diagnosis: same Operation/Findings: Posterior lumbar interbody fusion L3-L5 The patient developed abdominal distension on POD#2 with concern for postop ileus. This began to resolve spontaneously with NPO diet and supportive care. Resolved by POD#4. Progressed from intravenous analgesic needs to oral analgesic needs only. Remained neurovascularly intact and mobilized satisfactorily. All intraoperative and/or postoperative radiographic studies were satisfactory. Patient status and disposition reviewed with Dr. Ramirez. Patient is discharged with plan for rehabilitation and follow-up in 2 weeks post discharge on analgesic medication and patient's home medications. Vital Signs Temp Pulse Resp BP Pulse Ox 02/27/19 07:11 97.5 F L 83 18 127/72 97 02/27/19 04:23 97.9 F 88 15 151/87 94 02/26/19 23:57 99.3 F 109 16 145/96 97 02/26/19 21:22 104 154/86 02/26/19 19:01 99.4 F 111 17 173/99 96 02/26/19 15:06 97.5 F L 80 18 152/78 95 02/26/19 10:00 98.5 F 96 16 143/76 95 Intake and Output 02/26/19 02/27/19 02/27/19 23:59 07:59 15:59 Intake Total 0 / 0 1000 / 1000 Output Total 300 / 1300 800 / 800 Balance -300 / -1300 200 / 200 Intake: IV Fluids 0 / 0 1000 / 1000 Lactated Ringers 1,000 ML @ 100 0 / 0 1000 / 1000 mls/hr IVC .Q10H RAJANI Rx#: [id number] Output: Urine 300 / 1300 800 / 800 Other: # Voids 1 Weight 111.9 kg Patient Weight 02/27/19 23:59 Weight 111.9 kg Short CBC 02/26/19 Range/Units 08:49 WBC 9.7 (4.3-11.1) K/mcL Hgb 11.5 L (12.9-16.9) g/dL Hct 35.5 L (37.5-50.1) % Plt Count 165 (140-400) K/mcL Neutrophils # 7.7 (1.6-8.9) K/mcL BMP 02/26/19 Range/Units 08:49 Sodium 139 (136-145) mEq/L Potassium 3.4 L (3.5-5.1) mEq/L Chloride 101 (98-107) mEq/L Carbon Dioxide 28 (23-29) mEq/L BUN 11 (8-23) mg/dL Creatinine 0.71 (0.70-1.30) mg/dL Glucose 161 H (70-105) mg/dL Calcium 9.1 (8.6-10.3) mg/dL - Time Spent with Patient Total time spent providing and/or coordinating discharge services: - Discharge Medications Prescriptions: New Docusate Sodium [Colace] 100 mg PO BID 5 Days #10 capsule Cyclobenzaprine [Flexeril] 10 mg PO TID PRN 7 Days #21 tablet PRN Reason: Spasms OxyCODONE Immed Rel [Roxicodone 5 MG] 5 mg PO Q6HR PRN 5 Days #20 tablet PRN Reason: Severe Pain Acetaminophen [Tylenol] 650 mg PO Q6HR PRN 7 Days #56 tablet PRN Reason: Mild Pain/Fever Continued Omeprazole [PriLOSEC] 40 mg PO QPM #0 Metoprolol [Lopressor] 25 mg PO BID #0 Pravastatin Sodium [Pravachol] 40 mg PO QPM Aspirin Enteric Coated [Aspirin EC] 81 mg PO DAILY Lisinopril [Zestril] 10 mg PO QAM [place]-3/Dha/Epa/Fish Oil [Fish Oil 1,000 mg Softgel] 1,000 mg PO QAM Home Medications: Metoprolol [Lopressor] 25 mg PO BID #0 09/07/16 [History] Omeprazole [PriLOSEC] 40 mg PO QPM #0 09/07/16 [History] Pravastatin Sodium [Pravachol] 40 mg PO QPM 11/27/16 [History] Aspirin Enteric Coated [Aspirin EC] 81 mg PO DAILY 01/09/17 [History] Lisinopril [Zestril] 10 mg PO QAM 02/23/19 [History] [place]-3/Dha/Epa/Fish Oil [Fish Oil 1,000 mg Softgel] 1,000 mg PO QAM 02/23/19 [History] Acetaminophen [Tylenol] 650 mg PO Q6HR PRN 7 Days #56 tablet 02/27/19 [Rx] Cyclobenzaprine [Flexeril] 10 mg PO TID PRN 7 Days #21 tablet 02/27/19 [Rx] Docusate Sodium [Colace] 100 mg PO BID 5 Days #10 capsule 02/27/19 [Rx] OxyCODONE Immed Rel [Roxicodone 5 MG] 5 mg PO Q6HR PRN 5 Days #20 tablet 02/27/19 [Rx] Allergies/Adverse Reactions: Allergy/AdvReac Type Severity Reaction Status Date / Time No Known Allergies Allergy Verified 02/23/19 06:49 Date of admission: 02/23/19 13:05 Primary care physician: Hudson Strong MD Consults: 02/23/19 13:23 Consult to Physical Therapy [CONS] Routine Comment: Evaluate, develop and implement POC Reason for Consult: Postoperative rehabilitation Does patient have active BEDREST order?: No Is patient medically & hemodynamically stable?: Yes Patient assessed for mobility or mobilized this visit?: No Consult to Spine Navigator [CONS] [CONS] Routine 02/27/19 08:23 Consult to Vertical Boring Mill Operator [CONS] Routine Reason for SW Consult: discharge services Discharging clinician: Vinod Ramirez Jr Anticipated date of discharge: 02/27/19 - VTE Documentation of Mechanical Device: Graduated compression elastic hosiery Labs on day of discharge: Labs from last 24 hours 02/26/19 02/26/19 08:49 08:49 WBC 9.7 RBC 3.83 L Hgb 11.5 L Hct 35.5 L MCV 92.7 MCH 30.0 MCHC 32.4 RDW 12.7 Plt Count 165 MPV 9.8 Immature Gran % 0.6 Seg Neutrophils % 79.5 Lymphocytes % 6.8 Monocytes % 12.9 Eosinophils % 0.1 Basophils % 0.1 Neutrophils # 7.7 Lymphocytes # 0.7 Monocytes # 1.3 Eosinophils # 0.0 Basophils # 0.0 Sodium 139 Potassium 3.4 L Chloride 101 Carbon Dioxide 28 BUN 11 Creatinine 0.71 Est GFR ( Amer) > 60 Est GFR (Non-Af Amer) > 60 BUN/Creatinine Ratio 15 Glucose 161 H Calculated Osmolality 291 Calcium 9.1 - Impressions ITS Impressions Lumbar Spine X-Ray 02/23/19 00:00 IMPRESSION: Status post L3-L5 posterior fusion. Grade 1 anterolisthesis L4 on L5. D/ / Derik Byrd MD / Derik Byrd MD Interpreting Provider: Derik Byrd MD X-Ray 02/25/19 07:05 IMPRESSION: Loops of dilated small and large bowel, may be related to ileus versus partial small bowel obstruction. Mild right pleural effusion. D/ / Srinivas Lozano MD / Srinivas Lozano MD Interpreting Provider: Srinivas Lozano MD Lumbar Spine X-Ray 02/26/19 08:00 IMPRESSION: Status post anterior and posterior fusion as well as decompressive laminectomy from L3-L5. D/ / 02/26/2019 08:36:57 Kishore Macias MD / Tatiana Nava Interpreting Provider: Kishore Macias MD - Patient Status Disposition: Home, Self-Care Condition: Fair Functional capacity at discharge: uses cane/walker Overall status at discharge: patient is progressing back to baseline - Discharge Instructions Follow Up With: Shantel Parra, PAC [Physician Manufacturing Management Associate] - 03/10/19 9:00 am Hudson Strong MD [Primary Care Provider] - Additional Instructions: Discharge Instructions: Lumbar Please call [facility] ([phone]), your Primary Care Physician, or report to the ER if you have any of the following symptoms: Fever greater that 101.5, increased pain/redness/drainage/odor for your incision site or any other concerning symptoms. ACTIVITY * May Shower * No Tub Baths * No lifting greater than 10 pounds * No Smoking * No Swimming * No off Ground Activities (Running, Climbing, Ladders, Horseback Riding) * No Driving * Wear Back Brace when up walking if lumbar fusion done * Incentive Spirometer 10 times an hour MEDICATIONS: Upon discharge resume your home medications. Take all the medications as prescribed. Take a stool softener if taking narcotic pain medications. Stool softeners are only effective if you drink enough fluids. Dri nk 6-8 glass of water or fluids a day, unless this is not allowed for another health problem. Despite using stool softeners, if you haven't had a bowel movement in 3 days, please switch to a gentle laxative. Gentle laxatives are sold over the counter. You should have a bowel movement within 24 hours, if not call the office. You will be discharged from the hospital with a prescription for pain m edication. You are encouraged to decrease the use of narcotic pain medication as tolerated. Should you require a refill, please call the office. It is best to call 48-72 hours in advance of needing a prescription refill so you don't run out of medication. WOUND CARE: Remove Dressing Tomorrow. Leave incision open to air. Pat dry when you get out of the shower. FOLLOW-UP: Please follow up with your surgeon in the orthopedic clinic in 2 weeks from the day of surgery. References: [employer] ([email or web address]) - Diet and Activity Activity: as per physical therapy Diet: advance to your usual diet
[2019-02-27] MEDS: Aspirin Enteric Coated 81 MG Tablet PO SCH (09:02)
[2019-02-27] MEDS: (Omega-3/Dha/Epa/Fish Oil [Fish Oil 1,000 Mg Softgel]) PO SCH (09:02)
[2019-02-27 11:41] VITALS: BP 140/83
== END 2019-02-27 13:45 | disposition home or self-care (01) | DRG 454 ==
LOC: SAMDAY 06:07 → 3NENU 13:05
PROVIDERS: ADMIT Orthopaedic Surgery Orthopaedic Surgery of the Spine; ATTEND Orthopaedic Surgery Orthopaedic Surgery of the Spine

== ENCOUNTER 2019-06-24 12:00 | Observation (INO) ==
[2019-06-24 12:28] LABS: Hematocrit 47.1 % (37.5-50.1); Hemoglobin 15.3 g/dL (12.9-16.9); Mean Corpuscular HGB Conc 32.5 g/dL (31.6-35.5); Mean Corpuscular Hemoglobin 28.3 pg (28.0-33.3); Mean Corpuscular Volume 87.1 fL (83.0-100.0); Mean Platelet Volume 9.3 fL (9.4-12.4); Platelet Count 193 K/mcL (140-400); Red Blood Count 5.41 M/mcL (4.19-5.50); Red Cell Distribution Width 13.2 % (11.5-14.5)
--- NOTE | 2019-06-24 12:31 | Emergency Department Note ---
Disposition Clinical Impression: Left-sided weakness Disposition: Admitted As Inpatient Condition: Fair Time of Disposition: 13:42 Neuro HPI - General Chief Complaint: ED Neuro Symptoms/Deficit Stated Complaint: LEFT SIDED WEAKNESS Time Seen by Provider: 06/24/19 12:06 Source: patient, family Limitations: no limitations Nursing Notes Reviewed: Yes Vital Signs Reviewed: Yes - History of Present Illness HPI Narrative: 69-year-old male presents emergency Department with concerns of left-sided weakness. Patient states symptoms started acutely at 10:45 AM. Patient states that he is standing on his deck when he became acutely lightheaded, the room started to spin. He had left lower extremity weakness and had difficulty with walking at that time. Patient denied chest pain or shortness of breath or palpitations. Denied near syncopal symptoms. Denies abdominal pain, vomiting, diarrhea, hematochezia, melena. - Related Data Home Medications: Home Medications Medication Instructions Recorded Confirmed Metoprolol [Lopressor] 25 mg PO BID #0 09/07/16 06/24/19 Omeprazole [PriLOSEC] 40 mg PO QPM #0 09/07/16 06/24/19 Pravastatin Sodium [Pravachol] 40 mg PO QPM 11/27/16 06/24/19 Lisinopril [Zestril] 20 mg PO QAM 02/23/19 06/24/19 Aspirin [Lo-Dose Aspirin EC] 81 mg PO DAILY 06/24/19 06/24/19 DULoxetine [Cymbalta] 30 mg PO DAILY 06/24/19 06/24/19 Allergies/Adverse Reactions: Allergies Allergy/AdvReac Type Severity Reaction Status Date / Time No Known Allergies Allergy Verified 02/23/19 06:49 All systems ED: reviewed and negative except as stated. Review of Systems: As Per HPI Past Medical History - Past Medical History Attestation: Yes The following information was validated with the patient. Medical history: Reports: DVT, hypertension, kidney stones, myocardial infarction Surgical history: Reports: cataract, herniorrhaphy, orthopedic, other, other Psychiatric history: Reports: no psych history - Social History Smoking Status: Former smoker Smokeless Tobacco Status: No Alcohol use: Reports: none Drug use: Reports: none Physical Exam General: Alert and in no acute distress Skin: Warm, dry, intact Head: Normocephalic and atraumatic Neck: Supple, trachea midline and no tenderness Cardiovascular: RRR, no murmur, normal perfusion Respiratory: CTAB, no wheezing, cough, or respiratory distress Musculoskeletal: Normal strength, no tenderness, swelling or deformity GI: Soft, nontender, nondistended. Bowel sounds present Neuro: A&O to person, place, time and situation. 4-5 weakness to the left lower extremity compared to the right. Patient has left lower facial droop compared to the right. patient had difficulty of finger to nose testing with the left compared to the right but was able to complete the exam. Sensation intact to face. Psychiatric: cooperative and appropriate mood and affect. - General Limitations: no limitations General appearance: alert, in no apparent distress Course Vital Signs Temperature 98.3 F 06/24/19 12:03 Pulse Rate 69 06/24/19 12:03 Respiratory Rate 18 06/24/19 12:03 Blood Pressure 170/93 06/24/19 12:03 O2 Sat by Pulse Oximetry 99 06/24/19 12:03 Temperature 98.2 F 06/24/19 23:28 Pulse Rate 63 06/24/19 23:28 Respiratory Rate 16 06/24/19 23:28 Blood Pressure 145/87 06/24/19 23:28 O2 Sat by Pulse Oximetry 97 06/24/19 23:28 Oxygen Delivery Oxygen Delivery Room Air Neuro Symptoms/Deficit - MDM Narrative Medical decision making narrative: [facility] evaluated and recommended no tPA. Pt symptoms rapidly improving in the ED. Pt given ASA and will be admitted for further evaluation. - Medical Records Medical records reviewed: Yes I reviewed the patient's medical records. - Lab Data Lab results reviewed: Yes I reviewed the patient's lab results. Result diagrams: 06/24/19 12:20 06/24/19 12:20 Lab Results 06/24/19 06/24/19 06/24/19 Range/Units 12:08 12:20 12:20 WBC 6.0 (4.3-11.1) K/mcL RBC 5.41 (4.19-5.50) M/mcL Hgb 15.3 (12.9-16.9) g/dL Hct 47.1 (37.5-50.1) % MCV 87.1 (83.0-100.0) fL MCH 28.3 (28.0-33.3) pg MCHC 32.5 (31.6-35.5) g/dL RDW 13.2 (11.5-14.5) % Plt Count 193 (140-400) K/mcL MPV 9.3 L (9.4-12.4) fL PT (9.4-12.1) Seconds INR APTT (26.0-36.0) Seconds Sodium 140 (136-145) mEq/L Potassium 4.2 (3.5-5.1) mEq/L Chloride 107 (98-107) mEq/L Carbon Dioxide 26 (23-29) mEq/L BUN 13 (8-23) mg/dL Creatinine 0.86 (0.70-1.30) mg/dL Est GFR ( Amer) > 60 (> 60) Est GFR (Non-Af Amer) > 60 (> 60) BUN/Creatinine Ratio 15 (6-26) Glucose 120 H (70-105) mg/dL POC Glucose 113 H (70-99) mg/dL Calculated Osmolality 291 (280-300) Calcium 9.3 (8.6-10.3) mg/dL Troponin I < 0.03 (< 0.04) ng/mL Specimen Rejected 06/24/19 06/24/19 Range/Units 12:20 12:45 WBC (4.3-11.1) K/mcL RBC (4.19-5.50) M/mcL Hgb (12.9-16.9) g/dL Hct (37.5-50.1) % MCV (83.0-100.0) fL MCH (28.0-33.3) pg MCHC (31.6-35.5) g/dL RDW (11.5-14.5) % Plt Count (140-400) K/mcL MPV (9.4-12.4) fL PT 10.5 (9.4-12.1) Seconds INR 0.9 APTT 31.2 (26.0-36.0) Seconds Sodium (136-145) mEq/L Potassium (3.5-5.1) mEq/L Chloride (98-107) mEq/L Carbon Dioxide (23-29) mEq/L BUN (8-23) mg/dL Creatinine (0.70-1.30) mg/dL Est GFR ( Amer) (> 60) Est GFR (Non-Af Amer) (> 60) BUN/Creatinine Ratio (6-26) Glucose (70-105) mg/dL POC Glucose (70-99) mg/dL Calculated Osmolality (280-300) Calcium (8.6-10.3) mg/dL Troponin I (< 0.04) ng/mL Specimen Rejected Volume - Radiology Data Radiology results reviewed: Yes I reviewed the patient's radiology results. - EKG Data EKG attestation: Yes I reviewed and interpreted this EKG. EKG results narrative: Normal sinus rhythm with rate of 70 without evidence of STEMI or other dysrhythmia. Patient has a right bundle branch block which is unchanged from previous. QTC of 459, QRS of 166 NIH Stroke Scale - Level of Consciousness LOC: Alert - LOC Questions LOC Questions: Answers both correctly - LOC Commands LOC Commands: Performs both correctly - Best Gaze Best Gaze: Normal - Visual Visual: No visual loss - Facial Palsy Facial Palsy: Minor asymmetry on smiling, flattened nasolabial fold - Motor Arms Motor Arm-Left: No drift for 10 seconds Motor Arm-Right: No drift for 10 seconds - Motor Legs Motor Leg-Left: No drift for 5 seconds Motor Leg-Right: No drift for 5 seconds - Limb Ataxia Limb Ataxia: Present in ONE limb - Sensory Sensory: Normal - Best Language Best Language: No aphasia - Dysarthria Dysarthria: Normal - Extinction and Inattention Extinction and Inattention: Normal - NIHSS Total Score NIHSS Total Score: 2 TPA Checklist - LKW: 3-4.5 hrs Add. Warnings/Precautions Patient/family understanding: The patient/family members have been counseled and understood the risk, benefit, and alternatives of treatment.
[2019-06-24 12:52] LABS: BUN/Creatinine Ratio 15 (6-26); Blood Urea Nitrogen 13 mg/dL (8-23); Calcium 9.3 mg/dL (8.6-10.3); Carbon Dioxide 26 mEq/L (23-29); Chloride 107 mEq/L (98-107); Glucose 120 mg/dL (70-105); Osmolality,Calculated 291 (280-300); Potassium 4.2 mEq/L (3.5-5.1); Sodium 140 mEq/L (136-145); Troponin I < 0.03 ng/mL (< 0.04); eGFR For African Americans > 60 (> 60); eGFR For Non-African Americans > 60 (> 60)
[2019-06-24 13:03] LABS: INR 0.9; Prothrombin Time 10.5 Seconds (9.4-12.1)
[2019-06-24 13:06] LABS: Activated Partial Thrombo Time 31.2 Seconds (26.0-36.0)
[2019-06-24] MEDS ORDERED: Aspirin 81 MG TAB.CHEW PO ONE (13:52)
[2019-06-24] MEDS ORDERED: Acetaminophen 325 MG TABLET PO PRN (15:15)
[2019-06-24] MEDS ORDERED: Naloxone 0.4 MG/ML INJ IVP PRN (15:15)
[2019-06-24] MEDS ORDERED: *HR* Promethazine 25 MG/ML VIAL IVP PRN (15:15)
[2019-06-24] MEDS ORDERED: MOM Conc 10 ML UD.LIQ PO PRN (15:15)
[2019-06-24] MEDS ORDERED: traMADol 50 MG TABLET PO PRN (15:15)
[2019-06-24] MEDS ORDERED: Mag Hydrox/Al Hydrox/Simeth 30 ML UDC PO PRN (15:15)
[2019-06-24] MEDS ORDERED: Ondansetron 4 MG/2 ML VIAL IVP PRN (15:15)
--- NOTE | 2019-06-24 15:46 | Internal Med History&Physical ---
Date of Encounter: 06/24/19 Time of Encounter: 15:40 Internal Medicine - H&P: HPI Admitted From: Home Plans for Post Hospital Care: Home History of present illness: Mr. Diaz is a 69 year old male past medical history of CAD, hyperlipidemia, and hypertension presented with acute onset of left-sided weakness. Patient was on his usual state until this morning about 10:30, when he suddenly developed nausea and vomiting after taking his morning medications. His was at the bedside during the interview, she added the patient also complains room spinning and lightheadedness. Patient denies prior history of CVA or similar symptoms. He was admitted route to the ED, which was about [address] While in the ED, patient still have left-sided weakness but it quickly resolved. But patient started to have severe headache located at the back of the head. His vital signs upon arrival was stable. CT of her head was negative for acute changes. [facility] stroke center was called and recommended to admit patient for observation. CODE STATUS discussed with patient and family, he will be full code while in the hospital. Past Med Surg Social Fam HX - Past Medical History Medical history: DVT, hypertension, kidney stones, myocardial infarction Additional medical history: MT IN 2011 DUE TO DVT Psychiatric history: no psych history - Past Surgical History Surgical History: cataract, herniorrhaphy, orthopedic, other, other Additional surgical history: prolapse bowel, HEART SURGERY 2012 - Social History Smoking Status: Former smoker Smokeless Tobacco Status: No Alcohol use: none Drug use: none - Family History Father Living Status: Hx Family Cardiac Disorders: Yes (CABG) Hx Family Respiratory Disorders: No Hx Family Cancer: Yes (Prostate CA) Hx Family GI Disorders: No Hx Family Endocrine Disorder: No Hx Family Neuromuscular Disorders: No Hx Family Neurologic Disorders: No Hx Family HEENT Disorders: No Hx Family Autoimmune Disorders: No Internal Medicine - H&P: Meds Metoprolol [Lopressor] 25 mg PO BID #0 09/07/16 [History] Omeprazole [PriLOSEC] 40 mg PO QPM #0 09/07/16 [History] Pravastatin Sodium [Pravachol] 40 mg PO QPM 11/27/16 [History] Lisinopril [Zestril] 10 mg PO QAM 02/23/19 [History] Aspirin 325 mg PO DAILY 06/24/19 [History] DULoxetine [Cymbalta] 30 mg PO DAILY 06/24/19 [History] Allergy/AdvReac Type Severity Reaction Status Date / Time No Known Allergies Allergy Verified 02/23/19 06:49 All Systems PM: A 10-system review of systems was performed and is negative for pertinent findings except as documented above in the HPI. Review of systems: REVIEW OF SYSTEMS: CONSTITUTIONAL: No weight loss, fever, chills, weakness or fatigue. HEENT: Eyes: No visual loss, blurred vision, double vision or yellow sclerae. Ears, Nose, Throat: No hearing loss, sneezing, congestion, runny nose or sore throat. SKIN: No rash or itching. CARDIOVASCULAR: No chest pain, chest pressure or chest discomfort. No palpitations or edema. RESPIRATORY: No shortness of breath, cough or sputum. GASTROINTESTINAL: No anorexia, nausea, vomiting or diarrhea. No abdominal pain or blood. GENITOURINARY: No dysuria, urgency, or frequency. NEUROLOGICAL: see HPI. MUSCULOSKELETAL: No muscle, back pain, joint pain or stiffness. HEMATOLOGIC: No anemia, bleeding or bruising. LYMPHATICS: No enlarged nodes. No history of splenectomy. PSYCHIATRIC: No history of depression or anxiety. ENDOCRINOLOGIC: No reports of sweating, cold or heat intolerance. No polyuria or polydipsia. - Constitutional Vitals: Temp Pulse Resp BP Pulse Ox 98.3 F 63 18 154/90 95 06/24/19 12:08 06/24/19 13:48 06/24/19 12:44 06/24/19 13:48 06/24/19 13:48 General appearance: Present: A&O X 3 Exam: PHYSICAL EXAMINATION: GENERAL APPEARANCE: The patient is alert, oriented and in no acute distress. HEENT: Head is normocephalic. The sinuses are nontender. Pupils are equal and reactive. The nares are patent. Oropharynx clear without lesions. NECK: Supple without lymphadenopathy. HEART: Regular rate and rhythm. LUNGS: No crackles or wheezes are heard. ABDOMEN: Soft, nontender, nondistended with good bowel sounds heard. Inguinal area is normal. EXTREMITIES: Without cyanosis, clubbing or edema. NEUROLOGICAL: Gross nonfocal. SKIN: Warm and dry without any rash. Internal Med - H&P Results - Labs CBC & Chem 7: 06/24/19 12:20 06/24/19 12:20 Labs: Short CBC 06/24/19 Range/Units 12:20 WBC 6.0 (4.3-11.1) K/mcL Hgb 15.3 (12.9-16.9) g/dL Hct 47.1 (37.5-50.1) % Plt Count 193 (140-400) K/mcL BMP 06/24/19 12:20 Sodium 140 Potassium 4.2 Chloride 107 Carbon Dioxide 26 BUN 13 Creatinine 0.86 Glucose 120 H Calcium 9.3 Cardiac Enzymes 06/24/19 Range/Units 12:20 Troponin I < 0.03 (< 0.04) ng/mL - Impressions ITS Impressions Head CT 06/24/19 12:22 IMPRESSION: Small areas of low attenuation in the periventricular white matter of the right parietal lobe, may be related to small age-indeterminate infarctions versus chronic microvascular disease. Minimal parenchymal volume loss. Mild chronic microvascular disease. Results were reported to Dr. Cooper at 12:38 p.m. on June 24, 2019. D/ / Srinivas Lozano MD / Srinivas Lozano MD Interpreting Provider: Srinivas Lozano MD - Assessment and Plan (1) Left-sided weakness Current Visit: Yes Status: Acute Assessment and plan: 69-year-old gentleman presented with transient left-sided weakness associated with nausea, vomiting, dizziness, and lightheadedness after ingestion of morning medications which including metoprolol, aspirin, and lisinopril. His neurological symptoms essentially resolved 1 hour later after arrival to the ED. Patient has history of CAD, hypertension, and hyperlipidemia. CT of the head has no acute changes. Patient did not receive TPA. EKG showed sinus rhythm with right bundle branch block. Continue stroke workup, MRI and MRA of brain/neck ordered. We will continue telemetry monitoring, echocardiogram in the morning. (2) HLD (hyperlipidemia) Current Visit: No Status: Chronic Assessment and plan: Will repeat lipid panel in the morning, continue home statins. Qualifiers: Hyperlipidemia type: unspecified Qualified Code(s): E78.5 - Hyperlipidemia, unspecified (3) CAD (coronary artery disease) Current Visit: No Status: Chronic Assessment and plan: he has no chest pain, troponin was negative, EKG has no acute ST-T change. We will continue home medication including aspirin. Qualifiers: Coronary Disease-Associated Artery/Lesion type: unspecified vessel or lesion type [place] vs. transplanted heart: unspecified whether [place] or transplanted heart Associated angina: angina presence unspecified Qualified Code(s): I25.10 - Atherosclerotic heart disease of [place] coronary artery without angina pectoris (4) HTN (hypertension) Current Visit: No Status: Chronic Assessment and plan: AP slightly elevated, continue monitoring, continue home medication for now, titrate if indicated. Qualifiers: Hypertension type: essential hypertension Qualified Code(s): I10 - Essential (primary) hypertension (5) DVT prophylaxis Current Visit: Yes Status: Acute Assessment and plan: Heparin subcutaneous. - Time Spent With Patient Total time spent is greater than 50% in coordination of care (as documented) at patient's floor/unit and/or counseling patient: Greater than 35 minutes
[2019-06-24] MEDS: *HR* Heparin 5,000 UNIT/ML VIAL SQ SCH (20:58)
[2019-06-25 01:30] LABS: Basophils % 0.6 %; Eosinophils # 0.1 K/mcL (0.0-0.6); Eosinophils % 1.3 %; Hematocrit 45.6 % (37.5-50.1); Hemoglobin 14.7 g/dL (12.9-16.9); Immature Granulocytes % 0.3 % (0-4); Lymphocytes # 2.2 K/mcL (0.6-4.6); Lymphocytes % 32.6 %; Mean Corpuscular HGB Conc 32.2 g/dL (31.6-35.5); Mean Corpuscular Hemoglobin 28.4 pg (28.0-33.3); Mean Corpuscular Volume 88.2 fL (83.0-100.0); Mean Platelet Volume 9.6 fL (9.4-12.4); Monocytes % 14.4 %; Neutrophils # 3.4 K/mcL (1.6-8.9); Platelet Count 174 K/mcL (140-400); Red Blood Count 5.17 M/mcL (4.19-5.50); Red Cell Distribution Width 13.2 % (11.5-14.5); Segmented Neutrophils % 50.8 %; White Blood Count 6.7 K/mcL (4.3-11.1)
[2019-06-25 01:47] LABS: Alanine Aminotransferase 18 Units/L (7-52); Albumin/Globulin Ratio 1.5 (1.1-2.2); Alkaline Phosphatase 79 Units/L (34-104); Aspartate Amino Transferase 18 Units/L (13-39); BUN/Creatinine Ratio 15 (6-26); Bilirubin,Total 0.6 mg/dL (0.3-1.0); Blood Urea Nitrogen 13 mg/dL (8-23); Carbon Dioxide 27 mEq/L (23-29); Chloride 106 mEq/L (98-107); Chol/HDL Ratio 4.9 (0-4.9); Cholesterol 172 mg/dL (< 200); Globulin 2.6 g/dL (2.4-3.5); Glucose 119 mg/dL (70-105); HDL Cholesterol 35 mg/dL (40-59); LDL Cholesterol,Calculated 97 mg/dL (0-99); Osmolality,Calculated 289 (280-300); Potassium 4.1 mEq/L (3.5-5.1); Sodium 139 mEq/L (136-145); Total Protein 6.6 g/dL (6.4-8.9); Triglycerides 201 mg/dL (< 150); eGFR For African Americans > 60 (> 60); eGFR For Non-African Americans > 60 (> 60)
[2019-06-25] MEDS: *HR* Heparin 5,000 UNIT/ML VIAL SQ SCH (05:57)
--- NOTE | 2019-06-25 08:40 | Discharge Summary ---
- NOTES TO OUTPATIENT PROVIDER Notes to Outpatient Provider: f/u with PCP within 2 weeks. Date of Encounter: 06/25/19 Time of Encounter: 08:38 - Discharge Diagnosis (1) Left-sided weakness Priority: Primary Status: Resolved (2) HLD (hyperlipidemia) Priority: Secondary Status: Chronic Qualifiers: Hyperlipidemia type: unspecified Qualified Code(s): E78.5 - Hyperlipidemia, unspecified (3) CAD (coronary artery disease) Priority: Secondary Status: Chronic Qualifiers: Coronary Disease-Associated Artery/Lesion type: unspecified vessel or lesion type [place] vs. transplanted heart: unspecified whether [place] or transplanted heart Associated angina: angina presence unspecified Qualified Code(s): I25.10 - Atherosclerotic heart disease of [place] coronary artery without angina pectoris (4) HTN (hypertension) Priority: Secondary Status: Chronic Qualifiers: Hypertension type: essential hypertension Qualified Code(s): I10 - Essential (primary) hypertension (5) DVT prophylaxis Priority: Primary Status: Acute Hospital course: Mr. Diaz is a 69 year old male past medical history of CAD, hyperlipidemia, and hypertension presented with acute onset of left-sided weakness. Patient was on his usual state until this morning about 10:30, when he suddenly developed nausea and vomiting after taking his morning medications. His was at the bedside during the interview, she added the patient also complains room spinning and lightheadedness. Patient denies prior history of CVA or similar symptoms. He was admitted route to the ED, which was about [address] While in the ED, patient still have left-sided weakness but it quickly resolved. But patient started to have severe headache located at the back of the head. His vital signs upon arrival was stable. CT of her head was negative for acute changes. [facility] stroke center was called and recommended to admit patient for observation. MRI and MRA brain is negative for acute CVA or vascular stenosis. Carotid Doppler showed nonstenotic plaque. Telemetry was reviewed there is no atrial fibrillation or other arrhythmia. Lipid panel showed LDL 97, HDL 36. Patient already on statins at home. Patient is discharged home today, he will follow-up with PCP as scheduled. Discharge discussed with: patient Time spent discussing smoking cessation with patient: more than 10 minutes - Time Spent with Patient Total time spent providing and/or coordinating discharge services: Time spent: Greater than 30 minutes - Discharge Medications Prescriptions: Continued Omeprazole [PriLOSEC] 40 mg PO QPM #0 Metoprolol [Lopressor] 25 mg PO BID #0 Pravastatin Sodium [Pravachol] 40 mg PO QPM Lisinopril [Zestril] 20 mg PO QAM DULoxetine [Cymbalta] 30 mg PO DAILY Aspirin [Lo-Dose Aspirin EC] 81 mg PO DAILY Home Medications: Metoprolol [Lopressor] 25 mg PO BID #0 09/07/16 [History] Omeprazole [PriLOSEC] 40 mg PO QPM #0 09/07/16 [History] Pravastatin Sodium [Pravachol] 40 mg PO QPM 11/27/16 [History] Lisinopril [Zestril] 20 mg PO QAM 02/23/19 [History] Aspirin [Lo-Dose Aspirin EC] 81 mg PO DAILY 06/24/19 [History] DULoxetine [Cymbalta] 30 mg PO DAILY 06/24/19 [History] Allergies/Adverse Reactions: Allergy/AdvReac Type Severity Reaction Status Date / Time No Known Allergies Allergy Verified 02/23/19 06:49 Date of admission: 06/24/19 14:57 Primary care physician: Hudson Strong MD Anticipated date of discharge: 06/25/19 - Constitutional Vitals: Temp Pulse Resp BP Pulse Ox 97.5 F L 78 14 149/95 91 06/25/19 07:02 06/25/19 07:02 06/25/19 07:02 06/25/19 07:02 06/25/19 07:02 General appearance: Present: A&O X 3 Exam: PHYSICAL EXAMINATION: GENERAL APPEARANCE: The patient is alert, oriented and in no acute distress. HEENT: Head is normocephalic. The sinuses are nontender. Pupils are equal and reactive. The nares are patent. Oropharynx clear without lesions. NECK: Supple without lymphadenopathy. HEART: Regular rate and rhythm. LUNGS: No crackles or wheezes are heard. ABDOMEN: Soft, nontender, nondistended with good bowel sounds heard. Inguinal area is normal. EXTREMITIES: Without cyanosis, clubbing or edema. NEUROLOGICAL: Gross nonfocal. SKIN: Warm and dry without any rash. - Patient Status Disposition: Home, Self-Care Condition: Fair Functional capacity at discharge: independent ambulation Overall status at discharge: patient is progressing back to baseline - Discharge Instructions Instructions: How to Stop Smoking (DC), Chronic Hypertension (DC), Hyperlipidemia (DC), Cigarette Smoking and Your Health, [employer]ator [employer] Interpre[employer] (GEN) Follow Up With: Hudson Strong MD [Primary Care Provider] - - Diet and Activity Activity: increase activity as tolerated Diet: low fat, low cholesterol, low salt diet
[2019-06-25] MEDS ORDERED: Aspirin 81 MG TAB.CHEW PO SCH (09:00)
[2019-06-25] MEDS ORDERED: Lisinopril 20 MG TABLET PO SCH (09:00)
[2019-06-25 11:40] VITALS: BP 149/90
--- NOTE | 2019-06-29 10:07 | Electrocardiograph Report ---
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
== END 2019-06-25 13:21 | disposition home or self-care (01) ==
LOC: 3BNU 12:00 → EMEROOARM 12:00 → 3BNU 17:41
PROVIDERS: ADMIT Internal Medicine; ATTEND Internal Medicine